=== PATIENT | male | born 1960 | race Caucasian/White ===

== ENCOUNTER 2017-10-01 16:19 | Emergency (ER) | payer SELFPAY ==
[2017-10-01] MEDS ORDERED: METOPROLOL TARTRATE INJ 5 MG/5 ML VIAL IV ONE (16:45)
--- NOTE | 2017-10-01 16:50 | ED.PDOC ---
History of Present Illness - General Chief Complaint: Cardiovascular Problem Stated Complaint: Elevated BP Time Seen by Provider: 10/01/17 16:45 Source: patient, RN notes reviewed, Vital Signs reviewed Additional Information: Pt sent here from eye doctor for elevated BP. Pt has had some intermittent SOB. Questionable occasional chest pain. Pt has not been on antihypertensive therapy for 2 years. - History of Present Illness Timing/Duration: other - unknown Activities at Onset: none Prior Chest Pain/Cardiac Workup: no prior chest pain, no prior cardiac workup Improving Factors: nothing Nitro Today/Relief: no nitro taken today Aspirin Treatment Today: no aspirin today Associated Symptoms: shortness of breath - occasional Allergies/Adverse Reactions: Allergies NO KNOWN ALLERGY Allergy (Verified 10/01/17 16:28) Home Medications: Ambulatory Orders Bp Med PO DAILY 10/01/17 Review of Systems - Review of Systems Constitutional: States: no symptoms reported EENTM: States: no symptoms reported Past Medical History (General) - Patient Medical History Hx Stroke: No Hx Congestive Heart Failure: No Hx Hypertension: Yes Hx Diabetes: No Surgical History: no surgical history - Vaccination History Hx Influenza Vaccination: Yes - 2016 Hx Pneumococcal Vaccination: - unknown - Social History Hx Tobacco Use: Yes Family Medical History - Family History Father Family History: No Known Living Status: Departure - Departure Clinical Impression: NSTEMI (non-ST elevated myocardial infarction), LVH (left ventricular hypertrophy), Hypertensive urgency Time of Disposition: 18:45 Disposition: Transfer to Hospital Condition: Fair Departure Forms: ED Discharge - Pt. Copy, Patient Portal Self Enrollment Instructions: High Blood Pressure Referrals: Ealn King MD [Primary Care Provider] - 1-2 Weeks Home Medications: Ambulatory Orders Bp Med PO DAILY 10/01/17 Comments: Go to [facility] for further assessment and evaluation given abnormal cardiac enzymes concerning for heart damage related to excessively uncontrolled blood pressure. Transfer to Outside Facility - Transfer Information Accepting Provider:: Dr. Rueda Accepting Facility: [facility] Reason for Transfer: specialized care not available - Cardiology and Inpatient
--- NOTE | 2017-10-01 17:07 | RAD ---
EXAM DESCRIPTION: Chest,1 View CLINICAL HISTORY: Chest pain, shortness of breath. COMPARISON: None available. IMPRESSION: Single upright portable frontal view of the chest. Cardiac silhouette shows borderline cardiomegaly without congestive failure. Lung volumes are hyperinflated. Emphysematous changes bilaterally, most noticeable in the upper lobes. Lungs are clear without focal consolidative infiltrates. Bilateral costophrenic angles are sharp. No pneumothorax. Electronically signed by: Zachery Scott MD 10/01/2017 5:05 PM [facility]
[2017-10-01] MEDS ORDERED: ASPIRIN (CHEWABLE) 81 MG TAB PO ONE (18:20)
[2017-10-01] MEDS ORDERED: NITROGLYCERIN 0.4 MG 25 EA TAB SL ONE ×3 (18:33→18:45)
[2017-10-01] MEDS ORDERED: diphenhydrAMINE HCL 50 MG/ML VIAL ONE (18:33)
[2017-10-01] MEDS ORDERED: diphenhydrAMINE HCL 50 MG/ML VIAL IV ONE (18:36)
[2017-10-01] MEDS: NITROGLYCERIN 0.4 MG 25 EA TAB SL ONE ×2 (18:36→18:41)
[2017-10-01] MEDS: METOPROLOL TARTRATE INJ 5 MG/5 ML VIAL IV ONE ×2 (18:37→20:24)
--- NOTE | 2017-10-01 18:47 | CT ---
PROCEDURE: CTA Chest HISTORY: rule out PE Indication: Same as above Comparison: None Technique: CT of the chest was done with intravenous contrast followed by CT angiography of the pulmonary arteries. Coronal, Sagittal and 3D volumetric MIP reconstructions were generated from the acquired data. The patient was injected with contrast intravenously, without any documented immediate adverse reactions. This exam was performed according to our departmental dose-optimization program, which includes automated exposure control, adjustment of the mA and/or KV according to the patient's size and/or use of iterative reconstruction technique. FINDINGS: There is no visualization of filling defects in the main pulmonary trunk, main right and left pulmonary arteries or their lower order branches to suggest pulmonary embolism. The bilateral main pulmonary arteries are normal in caliber. There is no evidence of interventricular septal deviation or filling defects in the cardiac chambers. There is presence of minimal pericardial effusion and trace bilateral pleural effusions. There is presence of few shotty lymph nodes in the mediastinum and the bilateral hilar regions, measuring less than 1 cm in short axis dimension. There is a pathologically enlarged lymph node in the subcarinal region measuring 13 mm in short axis dimension. There are no discrete airspace infiltrates or pneumothoraces The trachea, bilateral mainstem bronchi and the bilateral main segmental bronchi are patent without any intraluminal mass lesions. There is no gross evidence of clinically significant thoracic aortic aneurysm or thoracic aortic dissection. The thoracic bony rib cage appears grossly unremarkable. The visualized thoracic spine shows mild multilevel degenerative change. Limited evaluation of the evaluated upper abdomen does not show any gross abnormalities. IMPRESSION: There is no pulmonary embolism There is presence of minimal pericardial effusion and trace bilateral pleural effusions. There is presence of few shotty lymph nodes in the mediastinum and the bilateral hilar regions, measuring less than 1 cm in short axis dimension. There is a pathologically enlarged lymph node in the subcarinal region measuring 13 mm in short axis dimension. These findings could be due to infectious, inflammatory or neoplastic etiology. Clinical correlation to this finding is requested Electronically signed by: Lizandro Moreno MD 10/01/2017 6:45 PM [employer] Workstation: [id number]
[2017-10-01] MEDS ORDERED: NITROGLYCERIN/D5W IV 50,000 MCG in PREMIX BOTTLE 1 BOTTLE IVS SCH (19:00)
[2017-10-01] MEDS ORDERED: NITROGLYCERIN/D5W IV 250 ML IVS ONE (19:03)
--- NOTE | 2017-10-01 20:01 | RAD ---
PROCEDURE: XR CHEST 1 VIEW HISTORY: hypoxia COMPARISON: 10/01/2017 TECHNIQUE: Single projection of the chest was done. FINDINGS: There is presence of mild infiltrate/atelectasis in the medial right lower lung zone . There are no pneumothoraces or pleural effusions. The pulmonary vascularity is normal. The cardiomediastinal silhouette is stable. IMPRESSION: There is presence of mild infiltrate/atelectasis in the medial right lower lung zone . Electronically signed by: Lizandro Moreno MD 10/01/2017 7:59 PM [facility] Workstation: [id number]
[2017-10-01 20:10] VITALS: O2SAT 95
[2017-10-01 21:03] VITALS: BP 196/116; TEMP 97.5
== END 2017-10-01 20:25 | disposition short-term general hospital (02) ==
LOC: ER 16:19
DX: I21.4 Non-ST elevation (NSTEMI) myocardial infarction (principal); I16.0 Hypertensive urgency; J81.1 Chronic pulmonary edema; F17.200 Nicotine dependence, unspecified, uncomplicated
CPT/HCPCS: 36415; 71010; 71275; 80048; 80076; 82550; 82553; 83880; 84484; 85025; 85379; 85610; 85730; 93005; 94660; J1200

== ENCOUNTER 2020-04-17 16:41 | Emergency (ER) | payer SELFPAY ==
[2020-04-17] MEDS ORDERED: cloNIDine HCL 0.1 MG TAB ONE (17:12)
[2020-04-17] MEDS ORDERED: cloNIDine HCL 0.1 MG TAB PO ONE ×2 (17:14→17:15)
--- NOTE | 2020-04-17 17:52 | CT ---
PROCEDURE: Head CLINICAL HISTORY: 59 years Male CONFUSION, HYPERTENSIVE URGENCY (223/155). COMPARISON: None. TECHNIQUE: Contiguous axial CT images obtained through the brain without IV contrast. This exam was performed according to our department optimization program which includes automated exposure control, adjustment of the mA and/or kv according to patient size and/or use of iterative reconstruction technique. FINDINGS: The ventricles and sulci are prominent consistent with atrophic changes. Microvascular ischemic changes. Old lacunar infarct in the left caudate and left thalamus. Dolichoectasia of the vertebrobasilar system. There is low-attenuation in the white matter of the left cerebellum and centrally within the latoya. This may be artifactual but the possibility of underlying abnormality or vasogenic edema should be considered. Recommend further evaluation with MRI. No midline shift. No mass lesions. No acute hemorrhage. Atherosclerotic calcifications. No fluid or significant mucosal thickening in the visualized paranasal sinuses. No depressed calvarial fractures. IMPRESSION: Abnormal diminished attenuation in the central cerebellum on the left and in the latoya. This may be artifactual but the possibility of vasogenic edema should be considered. Recommend further evaluation with MRI Dr. Iniguez was called and notified of findings at 5:50 PM central time. Generalized atrophy with microvascular ischemic changes. Electronically signed by: Priscilla Marroquin MD 04/17/2020 5:51 PM CDT
--- NOTE | 2020-04-17 19:15 | ED.PDOC ---
History of Present Illness - General Chief Complaint: Blood Pressure Problem Stated Complaint: high blood pressure Time Seen by Provider: 04/17/20 17:10 Source: patient Exam Limitations: no limitations - History of Present Illness Initial Comments: PT HAS H/O HTN BUT TAKES NO MEDS AND NOT CURRENTLY SEEING A DR. HE WENT TO DR. YOUNG, NEW PCP, TODAY FOR SOB, DIZZINESS, SLUGGISHNESS. BP 223/155. SENT TO ER. PT DENIES VISION CHANGES, MACIAS, CP, SOB. POS SX PER ABOVE. Timing/Duration: constant, getting worse Severity: moderate Improving Factors: nothing Worsening Factors: nothing Associated Symptoms: shortness of breath, weakness Allergies/Adverse Reactions: Allergies Iodine Allergy (Verified 04/17/20 17:19) Home Medications: Ambulatory Orders Bp Med PO DAILY 10/01/17 Review of Systems - Review of Systems Constitutional: States: weakness. Denies: chills, fever EENTM: Denies: ear pain, throat pain Respiratory: States: short of breath. Denies: cough Cardiology: Denies: chest pain, palpitations Gastrointestinal/Abdominal: Denies: abdominal pain, nausea Genitourinary: States: no symptoms reported Musculoskeletal: States: no symptoms reported Skin: States: no symptoms reported Neurological: States: headache, weakness. Denies: paresthesia, tremors Endocrine: States: no symptoms reported Hematologic/Lymphatic: States: no symptoms reported All other Systems: Reviewed and Negative Past Medical History (General) - Patient Medical History Hx Stroke: No Hx Congestive Heart Failure: No Hx Hypertension: Yes Hx Diabetes: No - Vaccination History Hx Influenza Vaccination: Yes - 2016 Hx Pneumococcal Vaccination: - unknown - Social History Hx Tobacco Use: Yes Family Medical History - Family History Father Family History: No Known Living Status: Physical Exam - Physical Exam General Appearance: Alert, No apparent distress Eye Exam: bilateral normal Ears, Nose, Throat: hearing grossly normal, normal ENT inspection, normal pharynx Neck: non-tender, full range of motion, supple, normal inspection Respiratory: lungs clear, normal breath sounds, no respiratory distress Cardiovascular/Chest: normal peripheral pulses, regular rate, rhythm, no murmur Peripheral Pulses: radial,right: 2+, radial,left: 2+ Gastrointestinal/Abdominal: normal bowel sounds, non tender, soft, no organomegaly, no pulsatile mass Rectal Exam: deferred Back Exam: normal inspection, no CVA tenderness Extremity: normal range of motion, non-tender, normal inspection, no pedal edema, no calf tenderness Neurologic: online communications manager II-XII nml as tested, no motor/sensory deficits, alert, normal mood/affect, oriented x 3 Skin Exam: normal color, warm/dry Lymphatic: no adenopathy Progress - Progress Progress: 04/17/20 19:54 HYPERTENSIVE URGENCY - BP 223/155, GAVE CLONIDINE 0.3 MG, NOW 188/124. GIVING LABETALOL FOR TRFR TO [facility]. SOB, DIZZINESS, SLUGGISH SX. NEG P.E. FOR OVERT STROKE/TIA. CBC UNREMARKABLE. CMP - ELEV CR AT 1.81. CRF FROM THE CHRONIC HTN. UA - PROTEINURIA, BLOOD, RBC. EKG NO ST CHANGES. CT HEAD SHOWS VASOGENIC EDEMA OF L CEREBELLUM AND ROLANDO. I SPOKE WITH [facility] NEURO, DR. COOK. HE RECOMMENDED TRFR TO ER FOR MRI AND FURTHER HOSPITAL CARE FROM THERE. I SPOKE WITH DR. ROGERS, [facility] ER. SHE RECOMMENDED LABETALOL FOR THE TRANSFER (GIVEN) AND ACCEPTED FURTHER CARE. THANK YOU, [facility]. - EKG/XRAY/CT EKG: no ST T wave changes Departure - Departure Clinical Impression: Vasogenic brain edema, Hypertensive emergency, Dizziness, Sluggishness Dyspnea Qualifiers: Dyspnea type: shortness of breath Qualified Code(s): R06.02 - Shortness of breath Chronic renal disease Qualifiers: Chronic kidney disease stage: unspecified stage Qualified Code(s): N18.9 - Chr onic kidney disease, unspecified Proteinuria Qualifiers: Proteinuria type: unspecified Qualified Code(s): R80.9 - Proteinuria, unspecified Disposition: Transfer to Hospital Condition: Fair Departure Forms: ED Discharge - Pt. Copy, Patient Portal Self Enrollment Referrals: Terra Young MD [Primary Care Provider] - 1-2 Weeks Home Medications: Ambulatory Orders Bp Med PO DAILY 10/01/17 Transfer to Outside Facility - Transfer Information Decision to Transfer Date: 04/17/20 Decision to Transfer Time: 20:06 Reason for Transfer: specialized care not available Accepting Provider:: DR. ROGERS Accepting Facility: [facility]
[2020-04-17 19:45] VITALS: O2SAT 97
[2020-04-17] MEDS ORDERED: LABETALOL INJ 5 MG/ML VIAL IV ONE (19:46)
[2020-04-17 20:34] VITALS: BP 185/110; TEMP 99.3
== END 2020-04-17 20:25 | disposition short-term general hospital (02) ==
LOC: ER 16:41
DX: I16.1 Hypertensive emergency (principal); G93.6 Cerebral edema; R06.02 Shortness of breath; N18.9 Chronic kidney disease, unspecified; I12.9 Hypertensive chronic kidney disease with stage 1 through stage 4 chronic kidney disease, or unspecified chronic kidney disease; R80.9 Proteinuria, unspecified; F17.200 Nicotine dependence, unspecified, uncomplicated

== ENCOUNTER → 2020-05-31 | Outpatient (CLI) | payer SELFPAY | END | disposition home or self-care (01) | LOC: LAB.O 16:22 | PROVIDERS: ATTEND Nurse Practitioner | DX: E11.9 Type 2 diabetes mellitus without complications (principal); I10 Essential (primary) hypertension; E03.9 Hypothyroidism, unspecified ==